=== PATIENT | female | born 1995 | race Two or more races ===

== ENCOUNTER 2023-09-24 14:11 | Inpatient (IN) | payer MEDICAID ==
[~2023-09-24] VITALS: Ht 152.4 cm; Wt 42.1 kg
[~2023-09-24 14:11] MED LIST: LEVE100S4; [UNRECOGNIZED DRUG - CODE]
[2023-09-24 14:23] VITALS: PULSE 93; RESP 23; O2SAT 100
[2023-09-24] MEDS: DEXTROSE (50%) 50ML SYRG IV ONE (14:40)
[2023-09-24] MEDS: DEXTROSE 50% SYRINGE 50 ML IV ONE (14:50)
[2023-09-24] MEDS: cefTRIAXone 1GM/50ML D5W 50 ML IV ONE (15:31)
[2023-09-24 15:41] LABS: Basophils # (auto) 0 10 ^3/uL (0-0.2); Basophils % (auto) 0.2 % (0.0-2.0); Eosinophils # (auto) 0 10 ^3/uL (0-0.8); Eosinophils % (auto) 0.1 % (0.0-7.0); Hematocrit 45.1 % (36.0-46.0); Hemoglobin 15.2 g/dL (12.2-16.2); Lymphocytes # (auto) 1.6 10 ^3/uL (0.4-5.4); Lymphocytes % (auto) 19.1 % (10.0-50.0); Mean Corpuscular Hemoglobin 32.8 pg (28.0-32.0); Mean Corpuscular Hgb Conc. 33.6 g/dL (32.0-36.0); Mean Corpuscular Volume 97.6 fL (80.0-100.0); Monocytes # (auto) 0.4 10 ^3/uL (0-1.3); Monocytes % (auto) 5.3 % (0.0-12.0); Neutrophils # (auto) 6.2 10 ^3/uL (1.6-8.6); Neutrophils % (auto) 75.3 % (37.0-80.0); Nucleated Red Blood Cells % 0.1 %; Red Blood Cells 4.62 10^6/uL (4.0-5.20); Red Cell Distribution Width 12.7 % (11.8-14.3); White Blood Cell 8.2 10^3/uL (4.4-10.8)
[2023-09-24 16:01] LABS: Partial Thromboplastin Time 29.2 SEC (24.5-34.5); Prothrombin Time 10.5 sec (9.3-11.8)
[2023-09-24 16:02] LABS: Alanine Aminotransferase 51 U/L (7-40); Alkaline Phosphatase 121 U/L (46-116); Aspartate Aminotransferase 31 U/L (13-40); Calcium 9.3 mg/dL (8.7-10.4); Chloride 112 mmol/L (98-107)
[2023-09-24 16:03] LABS: Albumin 4.7 g/dL (3.2-4.8); Anion Gap 9 (5-15); BUN/Creatinine Ratio 19.6 (10.0-20.0); Bilirubin, Total 0.5 mg/dL (0.2-1.0); Blood Urea Nitrogen 11 mg/dL (9-23); Carbon Dioxide 23 mmol/L (20-30); Glucose 105 mg/dL (74-106); Potassium 3.8 mmol/L (3.5-5.1); Sodium 144 mmol/L (136-145)
[2023-09-24] MEDS: AZITHROMYCIN 500MG/ 250ML 250 ML IV ONE (16:14)
[2023-09-24 16:43] LABS: Urine Amorphous Crystal FEW /hpf (None Seen); Urine Bacteria FEW /hpf (None Seen); Urine Blood 1+ /uL (Negative); Urine Budding Yeast MODERATE /hpf (None Seen); Urine Clarity HAZY (Clear); Urine Color Colorless (Yellow); Urine Mucus FEW (None Seen); Urine Protein, UAD TRACE (Negative); Urine Urobilinogen Normal (Negative); Urine WBC 89 /hpf (0 - 5)
[2023-09-24 17:25] LABS: COVID19 ANTIGEN SOFIA FIA NEGATIVE (NEGATIVE); Rapid Influenza A Negative (Negative); Rapid Influenza B Negative (Negative)
[2023-09-24] MEDS: IOHEXOL 350 MG/ML 100ML IJ ONE ×2 (17:30→22:21)
[2023-09-24] MEDS ORDERED: ZONI100C43 PO (17:44)
[2023-09-24] MEDS ORDERED: LEVE5SOL PO (17:44)
[2023-09-24] MEDS ORDERED: DOCUSATE SOD 100 MG CAP PO PRN ×2 (17:45→18:00)
[2023-09-24] MEDS ORDERED: ONDANSETRON HCL 4 MG/2 ML VIAL IV PRN ×2 (17:45→18:00)
[2023-09-24] MEDS ORDERED: NITROGLYCERIN 0.4 MG SL TAB SL PRN ×2 (17:45→18:00)
[2023-09-24] MEDS ORDERED: MORPHINE SULFATE INJ 2 MG/ml SYRG IV PRN ×2 (17:45→18:00)
[2023-09-24] MEDS ORDERED: ACETAMINOPHEN 325 MG TAB PO PRN ×2 (17:45→18:00)
[2023-09-24 18:00] VITALS: BP 107/78; PULSE 81; RESP 20; TEMP 98.1; O2SAT 100
[2023-09-24] MEDS ORDERED: ALBUTEROL SULF 2.5 MG/0.5ML(0.5%) NEB SOLN NEB SCH (18:00)
[2023-09-24] MEDS ORDERED: IPRATROPIUM BROM 0.5 MG/2.5ML INH SOL NEB SCH (18:00)
[2023-09-24 19:35] VITALS: PULSE 90; RESP 21; O2SAT 96
[2023-09-24] MEDS ORDERED: levETIRAcetam 500 MG/5ML ORAL SOLN UD PO SCH (22:00)
[2023-09-24] MEDS ORDERED: ZONISAMIDE PO SCH (22:00)
[2023-09-24] MEDS: levETIRAcetam 500 MG/5ML ORAL SOLN UD PO SCH (22:21)
[2023-09-24] MEDS: ALBUTEROL SULF 2.5 MG/0.5ML(0.5%) NEB SOLN NEB SCH (22:21)
[2023-09-24] MEDS: IPRATROPIUM BROM 0.5 MG/2.5ML INH SOL NEB SCH (22:21)
[2023-09-24 22:22] VITALS: PULSE 75; RESP 16; O2SAT 98
[2023-09-24 22:31] VITALS: PULSE 76; RESP 16; O2SAT 98
[2023-09-25] VITALS (18 sets, daily range): BP systolic 93–113; BP diastolic 54–67; PULSE 72–116; RESP 16–22; TEMP 97.4–98.3; O2SAT 92–100
[2023-09-25] MEDS: ACETYLCYSTEINE 10 %(100MG/ML) SOL 4ML NEB SCH (14:14)
[2023-09-25] MEDS: PIPERACILLIN-TAZOB 3.375GM 100 ML IV SCH (22:25)
[2023-09-26] VITALS (17 sets, daily range): BP systolic 85–99; BP diastolic 51–69; PULSE 55–102; RESP 14–20; TEMP 96.4–98; O2SAT 93–100
[2023-09-26] MEDS: TEMAZEPAM 15 MG CAP PO ONE (03:24)
[2023-09-26 08:27] LABS: Basophils # (auto) 0 10 ^3/uL (0-0.2); Basophils % (auto) 0.2 % (0.0-2.0); Eosinophils # (auto) 0 10 ^3/uL (0-0.8); Eosinophils % (auto) 0.4 % (0.0-7.0); Hematocrit 41.6 % (36.0-46.0); Hemoglobin 13.4 g/dL (12.2-16.2); Lymphocytes # (auto) 1.5 10 ^3/uL (0.4-5.4); Lymphocytes % (auto) 29.9 % (10.0-50.0); Mean Corpuscular Hemoglobin 32.5 pg (28.0-32.0); Mean Corpuscular Hgb Conc. 32.3 g/dL (32.0-36.0); Mean Corpuscular Volume 100.8 fL (80.0-100.0); Monocytes # (auto) 0.4 10 ^3/uL (0-1.3); Monocytes % (auto) 8.4 % (0.0-12.0); Neutrophils # (auto) 3.1 10 ^3/uL (1.6-8.6); Neutrophils % (auto) 61.1 % (37.0-80.0); Nucleated Red Blood Cells % 0.1 %; Red Blood Cells 4.13 10^6/uL (4.0-5.20); White Blood Cell 5.1 10^3/uL (4.4-10.8)
[2023-09-26 08:39] LABS: Chloride 110 mmol/L (98-107); Potassium 3.7 mmol/L (3.5-5.1); Sodium 140 mmol/L (136-145)
[2023-09-26 08:40] LABS: Anion Gap 8 (5-15); Calcium 9.6 mg/dL (8.5-10.1); Carbon Dioxide 22 mmol/L (20-30)
[2023-09-26 08:45] LABS: Glucose 88 mg/dL (74-106)
[2023-09-26 08:47] LABS: BUN/Creatinine Ratio 8.8 (10.0-20.0); Blood Urea Nitrogen < 5 mg/dL (9-23)
[2023-09-27] VITALS (16 sets, daily range): BP systolic 87–120; BP diastolic 55–87; PULSE 64–102; RESP 12–19; TEMP 97.3–99.1; O2SAT 93–99
[2023-09-27] MEDS: DOCUSATE SOD 100 MG CAP PO SCH (09:32)
[2023-09-27] MEDS ORDERED: guaiFENesin-DM 100/10mg/5ml SYR PO PRN (14:00)
[2023-09-27] MEDS: ACETAMINOPHEN 650 mg PER 20.3 mL UD PO PRN (17:49)
[2023-09-28] VITALS (17 sets, daily range): BP systolic 92–125; BP diastolic 61–79; PULSE 70–110; RESP 16–21; TEMP 97.8–98.7; O2SAT 92–99
[2023-09-28] MEDS: D5W/SOD CHLO 0.9% 1,000 ML IV SCH (20:43)
[2023-09-28] MEDS: levETIRAcetam 1000 mg/100ml 100 ML IV SCH (23:03)
[2023-09-29] VITALS (19 sets, daily range): BP systolic 90–107; BP diastolic 64–75; PULSE 60–85; RESP 16–30; TEMP 97.3–99.3; O2SAT 96–99
[2023-09-29] MEDS ORDERED: KETOROLAC TROMETH 30 MG/ML 1ML VIAL IV PRN (12:30)
[2023-09-29] MEDS: D5W/SOD CHLO 0.9% 1,000 ML IV SCH (12:45)
[2023-09-29 14:46] LABS: Basophils # (auto) 0 10 ^3/uL (0-0.2); Basophils % (auto) 1.1 % (0.0-2.0); Eosinophils # (auto) 0 10 ^3/uL (0-0.8); Eosinophils % (auto) 0.3 % (0.0-7.0); Hematocrit 35.2 % (36.0-46.0); Hemoglobin 12.1 g/dL (12.2-16.2); Lymphocytes # (auto) 0.8 10 ^3/uL (0.4-5.4); Mean Corpuscular Hemoglobin 33.2 pg (28.0-32.0); Mean Corpuscular Hgb Conc. 34.4 g/dL (32.0-36.0); Mean Corpuscular Volume 96.4 fL (80.0-100.0); Monocytes # (auto) 0.2 10 ^3/uL (0-1.3); Monocytes % (auto) 7.5 % (0.0-12.0); Neutrophils # (auto) 2.2 10 ^3/uL (1.6-8.6); Neutrophils % (auto) 67.1 % (37.0-80.0); Nucleated Red Blood Cells % 0.1 %; Red Blood Cells 3.65 10^6/uL (4.0-5.20); Red Cell Distribution Width 12.6 % (11.8-14.3); White Blood Cell 3.3 10^3/uL (4.4-10.8)
[2023-09-29 14:51] LABS: Chloride 113 mmol/L (98-107); Potassium 3.4 mmol/L (3.5-5.1); Sodium 142 mmol/L (136-145)
[2023-09-29 14:52] LABS: Anion Gap 7 (5-15); Carbon Dioxide 22 mmol/L (20-30)
[2023-09-29 14:57] LABS: Glucose 93 mg/dL (74-106)
[2023-09-29 15:03] LABS: Blood Urea Nitrogen < 5 mg/dL (9-23)
[2023-09-29] MEDS: ZONISAMIDE XX SCH (15:45)
[2023-09-29] MEDS: LORazepam 2MG/ML-1ML VIAL IV PRN (19:47)
[2023-09-29] MEDS: Jevity 1.2 Cal/Fiber 1 Liter GT SCH (20:01)
[2023-09-30] VITALS (19 sets, daily range): BP systolic 101–123; BP diastolic 77–92; PULSE 63–89; RESP 12–22; TEMP 97.4–98.6; O2SAT 95–100
[2023-09-30 07:28] LABS: Basophils # (auto) 0 10 ^3/uL (0-0.2); Basophils % (auto) 0.4 % (0.0-2.0); Eosinophils # (auto) 0 10 ^3/uL (0-0.8); Eosinophils % (auto) 0.3 % (0.0-7.0); Hematocrit 42.4 % (36.0-46.0); Hemoglobin 13.5 g/dL (12.2-16.2); Lymphocytes # (auto) 0.7 10 ^3/uL (0.4-5.4); Lymphocytes % (auto) 17.8 % (10.0-50.0); Mean Corpuscular Hemoglobin 32.6 pg (28.0-32.0); Mean Corpuscular Hgb Conc. 31.8 g/dL (32.0-36.0); Mean Corpuscular Volume 102.3 fL (80.0-100.0); Monocytes # (auto) 0.4 10 ^3/uL (0-1.3); Monocytes % (auto) 10.1 % (0.0-12.0); Neutrophils # (auto) 2.9 10 ^3/uL (1.6-8.6); Neutrophils % (auto) 71.4 % (37.0-80.0); Nucleated Red Blood Cells % 0.1 %; Red Blood Cells 4.14 10^6/uL (4.0-5.20); Red Cell Distribution Width 12.9 % (11.8-14.3); White Blood Cell 4.1 10^3/uL (4.4-10.8)
[2023-09-30 07:35] LABS: Alanine Aminotransferase 16 U/L (7-40); Albumin 4.1 g/dL (3.2-4.8); Anion Gap 9 (5-15); Aspartate Aminotransferase 12 U/L (13-40); BUN/Creatinine Ratio 8.8 (10.0-20.0); Bilirubin, Total 0.4 mg/dL (0.2-1.0); Blood Urea Nitrogen 5 mg/dL (9-23); Calcium 9.4 mg/dL (8.7-10.4); Carbon Dioxide 20 mmol/L (20-30); Chloride 112 mmol/L (98-107); Glucose 116 mg/dL (74-106); Potassium 3.4 mmol/L (3.5-5.1); Sodium 141 mmol/L (136-145); Total Protein 6.5 g/dL (5.7-8.2)
[2023-09-30 07:38] LABS: Alkaline Phosphatase 84 U/L (46-116)
[2023-09-30] MEDS: ACETAMINOPHEN 650 mg PER 20.3 mL UD NG PRN (09:23)
[2023-09-30] MEDS: POTASSIUM CHL 20MEQ/100ML 100 ML IV ONE (15:39)
[2023-09-30] MEDS ORDERED: LORazepam 2MG/ML-1ML VIAL IV PRN (18:30)
[2023-09-30] MEDS: PIPERACILLIN-TAZOB 3.375GM 100 ML IV SCH (19:58)
[2023-09-30] MEDS: ZONISAMIDE XX SCH (22:00)
[2023-10-01] VITALS (16 sets, daily range): BP systolic 91–109; BP diastolic 60–81; PULSE 67–112; RESP 15–20; TEMP 97.4–98.4; O2SAT 91–100
[2023-10-01 06:21] LABS: Chloride 112 mmol/L (98-107); Potassium 3.8 mmol/L (3.5-5.1); Sodium 141 mmol/L (136-145)
[2023-10-01 06:22] LABS: Anion Gap 6 (5-15); Calcium 9.5 mg/dL (8.7-10.4); Carbon Dioxide 23 mmol/L (20-30)
[2023-10-01 06:24] LABS: Basophils # (auto) 0 10 ^3/uL (0-0.2); Basophils % (auto) 0.2 % (0.0-2.0); Eosinophils # (auto) 0 10 ^3/uL (0-0.8); Eosinophils % (auto) 0.1 % (0.0-7.0); Hemoglobin 12.8 g/dL (12.2-16.2); Lymphocytes # (auto) 0.5 10 ^3/uL (0.4-5.4); Lymphocytes % (auto) 5.7 % (10.0-50.0); Mean Corpuscular Hemoglobin 33.6 pg (28.0-32.0); Mean Corpuscular Hgb Conc. 34.6 g/dL (32.0-36.0); Mean Corpuscular Volume 96.9 fL (80.0-100.0); Monocytes # (auto) 0.5 10 ^3/uL (0-1.3); Monocytes % (auto) 5.5 % (0.0-12.0); Neutrophils # (auto) 7.3 10 ^3/uL (1.6-8.6); Neutrophils % (auto) 88.5 % (37.0-80.0); Red Blood Cells 3.82 10^6/uL (4.0-5.20); Red Cell Distribution Width 12.7 % (11.8-14.3); White Blood Cell 8.3 10^3/uL (4.4-10.8)
[2023-10-01 06:27] LABS: BUN/Creatinine Ratio 9.4 (10.0-20.0); Blood Urea Nitrogen < 5 mg/dL (9-23); Glucose 95 mg/dL (74-106)
[2023-10-01 06:28] LABS: Magnesium 2.2 mg/dL (1.6-2.6)
[2023-10-02] VITALS (16 sets, daily range): BP systolic 102–117; BP diastolic 59–84; PULSE 76–106; RESP 16–20; TEMP 97.4–98.6; O2SAT 90–98
[2023-10-02] MEDS: guaiFENesin-DM 100/10mg/5ml SYR NG PRN (12:05)
[2023-10-02] MEDS: ACETYLCYSTEINE 10 %(100MG/ML) SOL 4ML NEB SCH (18:22)
[2023-10-02] MEDS: ZONISAMIDE XX SCH (23:04)
[2023-10-03] VITALS (20 sets, daily range): BP systolic 97–107; BP diastolic 54–74; PULSE 70–101; RESP 12–22; TEMP 97.7–98.6; O2SAT 93–100
[2023-10-03] MEDS: IPRATROPIUM BROM 0.5 MG/2.5ML INH SOL NEB PRN (02:08)
[2023-10-03] MEDS: ALBUTEROL SULF 2.5 MG/0.5ML(0.5%) NEB SOLN NEB PRN (02:08)
[2023-10-03 06:15] LABS: Basophils # (auto) 0 10 ^3/uL (0-0.2); Basophils % (auto) 0.3 % (0.0-2.0); Eosinophils # (auto) 0 10 ^3/uL (0-0.8); Eosinophils % (auto) 0.3 % (0.0-7.0); Hematocrit 35.7 % (36.0-46.0); Hemoglobin 12.4 g/dL (12.2-16.2); Lymphocytes # (auto) 0.6 10 ^3/uL (0.4-5.4); Lymphocytes % (auto) 11.9 % (10.0-50.0); Mean Corpuscular Hemoglobin 33.6 pg (28.0-32.0); Mean Corpuscular Hgb Conc. 34.7 g/dL (32.0-36.0); Mean Corpuscular Volume 96.7 fL (80.0-100.0); Monocytes # (auto) 0.5 10 ^3/uL (0-1.3); Neutrophils # (auto) 4.2 10 ^3/uL (1.6-8.6); Neutrophils % (auto) 77.5 % (37.0-80.0); Red Blood Cells 3.69 10^6/uL (4.0-5.20); Red Cell Distribution Width 12.3 % (11.8-14.3); White Blood Cell 5.4 10^3/uL (4.4-10.8)
[2023-10-03 06:21] LABS: Anion Gap 7 (5-15); Carbon Dioxide 23 mmol/L (20-30); Chloride 112 mmol/L (98-107); Potassium 3.7 mmol/L (3.5-5.1); Sodium 142 mmol/L (136-145)
[2023-10-03 06:22] LABS: Calcium 9.3 mg/dL (8.5-10.1)
[2023-10-03 06:25] LABS: INR 1.06 (0.9-1.15); Partial Thromboplastin Time 29.9 SEC (24.5-34.5); Prothrombin Time 11.1 sec (9.3-11.8)
[2023-10-03 06:27] LABS: Blood Urea Nitrogen 8 mg/dL (9-23); Glucose 111 mg/dL (74-106)
[2023-10-03] MEDS: FREE WATER GT SCH (17:45)
[2023-10-04] VITALS (19 sets, daily range): BP systolic 92–103; BP diastolic 51–71; PULSE 67–98; RESP 16–24; TEMP 98.1–99; O2SAT 92–100
[2023-10-05] VITALS (17 sets, daily range): BP systolic 96–108; BP diastolic 70–76; PULSE 66–88; RESP 16–22; TEMP 97.1–99.1; O2SAT 93–100
[2023-10-05] MEDS ORDERED: LIDOCAINE 2%HCL (LOCAL ANESTH.) INJ 20ML MDV ONE (09:01)
[2023-10-05] MEDS ORDERED: GLYCOPYRROLATE 0.2 MG/ML 1ML VIAL ONE (09:03)
[2023-10-05] MEDS ORDERED: LIDOCAINE 2% JELLY 11ml (GLYDO) ONE (09:03)
[2023-10-05] MEDS ORDERED: SODIUM CHLORIDE LOCK 10 ML ONE (09:03)
[2023-10-05] MEDS ORDERED: NALOXONE HCL 0.4 MG/ML VIAL ONE (09:04)
[2023-10-05] MEDS ORDERED: FLUMAZENIL 0.1 MG/ML INJ 10ML MDV IV ONE (09:04)
[2023-10-05] MEDS ORDERED: EPINEPHrine HCL 1 MG/1 ML AMP ONE (09:05)
[2023-10-05] MEDS: MIDAZOLAM HCL 5 MG/ML-1ML VIAL ONE (10:40)
[2023-10-05] MEDS: fentaNYL CITRATE 100 MCG/2 ML VL ONE (10:40)
[2023-10-06] VITALS (18 sets, daily range): BP systolic 91–106; BP diastolic 63–75; PULSE 67–101; RESP 12–20; TEMP 97.8–98.8; O2SAT 94–99
[2023-10-07] VITALS (19 sets, daily range): BP systolic 92–98; BP diastolic 57–66; PULSE 74–102; RESP 12–22; TEMP 98.2–99.8; O2SAT 95–99
[2023-10-08] VITALS (20 sets, daily range): BP systolic 95–117; BP diastolic 67–88; PULSE 68–87; RESP 16–21; TEMP 97.3–98.2; O2SAT 95–100
[2023-10-08] MEDS ORDERED: FLORASTOR (S. BOULARDII) 250 MG CAP PO SCH (12:45)
[2023-10-08] MEDS: FLORASTOR (S. BOULARDII) 250 MG CAP NG ONE (13:20)
[2023-10-08] MEDS ORDERED: FLUCONAZOLE 200 MG/100 ML IV ONE (15:00)
[2023-10-08] MEDS: FLUCONAZOLE 200 MG/100 ML IV ONE (16:50)
[2023-10-08] MEDS: FLUCONAZOLE 200 MG/100 ML IV SCH (17:56)
[2023-10-08] MEDS: CHOLESTYRAMINE 4 GM POWDER GT ONE (18:19)
[2023-10-09] VITALS (21 sets, daily range): BP systolic 96–132; BP diastolic 3–74; PULSE 71–94; RESP 14–22; TEMP 97–97.9; O2SAT 95–100
[2023-10-09] MEDS: PIPERACILLIN-TAZOB 3.375GM 100 ML IV SCH ×2 (00:15→09:28)
[2023-10-09] MEDS: FLORASTOR (S. BOULARDII) 250 MG CAP NG SCH (09:28)
[2023-10-09] MEDS ORDERED: FLUCONAZOLE 200MG/100ML 100 ML IV SCH (10:00)
[2023-10-09] MEDS ORDERED: ALBUTEROL SULF 2.5 MG/0.5ML(0.5%) NEB SOLN NEB PRN ×2 (13:00→13:45)
[2023-10-09] MEDS ORDERED: IPRATROPIUM BROM 0.5 MG/2.5ML INH SOL NEB PRN (13:00)
[2023-10-09] MEDS ORDERED: ceFAZolin 1GM/50ML 50 ML IV ONE (13:15)
[2023-10-09] MEDS: Jevity 1.2 Cal/Fiber 1 Liter GT SCH (14:40)
[2023-10-09] MEDS: FLUCONAZOLE 200MG/100ML 100 ML IV ONE (14:40)
[2023-10-09] MEDS: IPRATROPIUM BROM 0.5 MG/2.5ML INH SOL NEB PRN (20:04)
[2023-10-09] MEDS: ALBUTEROL SULF 2.5 MG/0.5ML(0.5%) NEB SOLN NEB PRN (20:04)
[2023-10-10] VITALS (16 sets, daily range): BP systolic 90–136; BP diastolic 61–96; PULSE 66–98; RESP 16–22; TEMP 97.7–98.6; O2SAT 95–100
[2023-10-10] MEDS: FLUCONAZOLE 200MG/100ML 100 ML IV SCH (09:13)
[2023-10-10] MEDS ORDERED: ceFAZolin 1GM/50ML 50 ML IV ONE (13:54)
[2023-10-10] MEDS ORDERED: fentaNYL CITRATE 100 MCG/2 ML VL ONE (14:03)
[2023-10-10] MEDS ORDERED: ePHEDrine SULFATE 50 MG/ML AMP ONE (14:12)
[2023-10-10] MEDS ORDERED: PROPOFOL 10 MG/ML 20 ML IV ONE (14:16)
[2023-10-10] MEDS: KETOROLAC TROMETH 30 MG/ML 1ML VIAL IV ONE (15:51)
[2023-10-10] MEDS: MORPHINE SULFATE INJ 2 MG/ml SYRG IV PRN (20:22)
[2023-10-11] VITALS (18 sets, daily range): BP systolic 90–101; BP diastolic 59–66; PULSE 55–95; RESP 14–22; TEMP 97.4–97.8; O2SAT 95–100
[2023-10-11 05:47] LABS: Basophils # (auto) 0 10 ^3/uL (0-0.2); Eosinophils # (auto) 0 10 ^3/uL (0-0.8); Eosinophils % (auto) 0.4 % (0.0-7.0); Hematocrit 36.6 % (36.0-46.0); Hemoglobin 12.1 g/dL (12.2-16.2); Lymphocytes % (auto) 25.6 % (10.0-50.0); Mean Corpuscular Hemoglobin 32.7 pg (28.0-32.0); Mean Corpuscular Hgb Conc. 33.1 g/dL (32.0-36.0); Mean Corpuscular Volume 98.7 fL (80.0-100.0); Monocytes # (auto) 0.5 10 ^3/uL (0-1.3); Monocytes % (auto) 12.2 % (0.0-12.0); Neutrophils # (auto) 2.3 10 ^3/uL (1.6-8.6); Neutrophils % (auto) 60.8 % (37.0-80.0); Nucleated Red Blood Cells % 0.2 %; Red Blood Cells 3.71 10^6/uL (4.0-5.20); Red Cell Distribution Width 12.7 % (11.8-14.3); White Blood Cell 3.9 10^3/uL (4.4-10.8)
[2023-10-11 06:03] LABS: Anion Gap 10 (5-15); Carbon Dioxide 18 mmol/L (20-30); Chloride 111 mmol/L (98-107); Potassium 3.6 mmol/L (3.5-5.1); Sodium 139 mmol/L (136-145)
[2023-10-11 06:04] LABS: Calcium 9.2 mg/dL (8.5-10.1)
[2023-10-11 06:09] LABS: BUN/Creatinine Ratio 12.7 (10.0-20.0); Blood Urea Nitrogen 7 mg/dL (9-23); Glucose 70 mg/dL (74-106)
[2023-10-11] MEDS ORDERED: Vital AF 1.2 Cal 1 liter bottle GT SCH (15:45)
[2023-10-12] VITALS (13 sets, daily range): BP systolic 87–101; BP diastolic 50–63; PULSE 61–98; RESP 12–19; TEMP 97.4–97.6; O2SAT 96–100
[2023-10-12] MEDS ORDERED: TRAM50TA2 PO (16:46)
== END 2023-10-12 17:00 | disposition home health service (06) | DRG 137 ==
LOC: EDBD 14:11 → ER 14:15 → TELE 17:42 → ER 17:46 → TELE-WESTW 09-25 02:10 → TELE 09-25 02:12 → TELE-WESTW 09-25 02:40
PROVIDERS: ADMIT Nurse Practitioner Family; ATTEND Nurse Practitioner Acute Care
PROC: 0BDF8ZX Extraction of Right Lower Lung Lobe, Via Natural or Artificial Opening Endoscopic, Diagnostic (ICD-10-PCS; 2023-10-05)
PROC: 0BDJ8ZX Extraction of Left Lower Lung Lobe, Via Natural or Artificial Opening Endoscopic, Diagnostic (ICD-10-PCS; 2023-10-05)
PROC: 0BC68ZZ Extirpation of Matter from Right Lower Lobe Bronchus, Via Natural or Artificial Opening Endoscopic (ICD-10-PCS; principal; 2023-10-05 10:31)
PROC: 0DH63UZ Insertion of Feeding Device into Stomach, Percutaneous Approach (ICD-10-PCS; 2023-10-10)
DX: J69.0 Pneumonitis due to inhalation of food and vomit (principal); J96.01 Acute respiratory failure with hypoxia; F84.2 Rett's syndrome; F72 Severe intellectual disabilities; E86.0 Dehydration; N30.00 Acute cystitis without hematuria; G40.409 Other generalized epilepsy and epileptic syndromes, not intractable, without status epilepticus; R62.50 Unspecified lack of expected normal physiological development in childhood; K59.00 Constipation, unspecified; J98.11 Atelectasis; F17.200 Nicotine dependence, unspecified, uncomplicated; M41.9 Scoliosis, unspecified; R13.10 Dysphagia, unspecified; Z79.899 Other long term (current) drug therapy; Z68.1 Body mass index [BMI] 19.9 or less, adult; R63.6 Underweight
CPT/HCPCS: 31622; 31720; 36415; 71045; 71250; 71275; 80048; 80053; 81001; 82962; 83605; 83735; 83880; 84484; 84702; 85025; 85379; 85610; 85730; 86850; 86900; 86901; 87040; 87070; 87077; 87086; 87205; 87426; 87493; 87804; 92507; 92610; 93005; 94640; 94667; 94668; 95819; G0378; J0171; J1450; J1885; J2250; J2543; J2704; J3480; J7042